=== PATIENT | male | born 1955 | race African-American/Black ===

== ENCOUNTER 2024-07-19 16:59 | Emergency (ER) | payer MEDICARE, MEDICAID ==
[~2024-07-19] VITALS: Ht 170.2 cm; Wt 73.0 kg
[~2024-07-19 16:59] MED LIST: AMLO5TAB88 PO; ASPI-1160 PO; LIP40 PO
[2024-07-19 17:04] VITALS: O2SAT 97
[2024-07-19 18:27] LABS: BASOPHILS % 0.5 % (0.0-2.0); HEMATOCRIT. 42.6 % (42.0-52.0); HEMOGLOBIN. 13.5 g/dL (14.0-18.0); LYMPHOCYTES % 34.8 % (20.0-50.0); MEAN CORPUSCULAR HEMOGLOBIN 31.2 pg (28.0-32.0); MEAN CORPUSCULAR HGB CONC 31.6 g/dL (31.0-37.0); MEAN CORPUSCULAR VOLUME 98.5 fL (80.0-94.0); MONOCYTES % 10.1 % (2.0-8.0); NEUTROPHILS % 50.6 % (40.0-76.0); PLATELET 214 x1000/uL (130-400); RED BLOOD CELL COUNT 4.32 mill/uL (4.7-6.1); RED CELL DISTRIBUTION WIDTH 14.1 % (11.6-14.6); WHITE BLOOD COUNT 5.7 x1000/uL (4.5-11.0)
[2024-07-19 18:38] LABS: CHLORIDE 106 mEq/L (98-107); POTASSIUM 4.1 mEq/L (3.5-5.1); SODIUM 141 mEq/L (136-145)
[2024-07-19 18:39] LABS: CALCIUM 9.9 mg/dL (8.7-10.4); CARBON DIOXIDE 28 mEq/L (21-32)
[2024-07-19 18:44] LABS: CREATININE 1.2 mg/dL (0.6-1.3); GLUCOSE 71 mg/dL (70-105); UREA NITROGEN BLOOD 20 mg/dL (9-23)
[2024-07-19] MEDS ORDERED: POLY17PO3 MT (20:11)
[2024-07-19 23:54] VITALS: BP 147/83; PULSE 67; RESP 16; TEMP 36.7; O2SAT 98
== END 2024-07-20 ==
LOC: ER 16:59
DX: K59.00 Constipation, unspecified (principal); E78.00 Pure hypercholesterolemia, unspecified; F03.90 Unspecified dementia, unspecified severity, without behavioral disturbance, psychotic disturbance, mood disturbance, and anxiety; I10 Essential (primary) hypertension; Z79.82 Long term (current) use of aspirin; Z79.899 Other long term (current) drug therapy
CPT/HCPCS: 36415; 71045; 80048; 85025; 93005; 99285